=== PATIENT | female | born 1995 | race American Indian/Alaskan Native ===

== ENCOUNTER 2020-03-01 01:23 | Emergency (ER) | payer MEDICAID ==
[2020-03-01] MEDS ORDERED: ZIPRASIDONE MESYLATE 20 MG VIAL IM ONE ×2 (01:33→01:35)
--- NOTE | 2020-03-01 01:55 | Emergency Department Report ---
ED Psych HPI - General Chief Complaint: Psych Stated Complaint: MH EVALUATION Time Seen by Provider: 03/01/20 01:35 Source: patient, family Mode of arrival: Ambulatory - History of Present Illness Initial Comments: Patient is 25 years old female with history of schizophrenia. Patient brought to the emergency room by her for evaluation of altered mental status and agitation. stated that patient started talking nonsense and became more agitated. He stated that this is typical for her acute psychosis. In the emergency room patient is alert. Patient agitated. Patient is responding to internal stimuli. Patient received Geodon 20 mg IM for chemical restraints. Complaint: altered mental status - Related Data Home Medications Medication Instructions Recorded Confirmed Last Taken ARIPiprazole [Abilify] 10 mg PO DAILY 01/24/16 01/24/16 Unknown Allergies Allergy/AdvReac Type Severity Reaction Status Date / Time No Known Allergies Allergy Verified 03/01/20 01:33 ED Review of Systems ROS: Stated complaint: MH EVALUATION Other details as noted in HPI Comment: All other systems reviewed and negative Constitutional: denies: chills, fever Respiratory: denies: cough, shortness of breath, SOB with exertion Cardiovascular: denies: chest pain, palpitations Gastrointestinal: denies: abdominal pain, nausea Musculoskeletal: denies: back pain Neurological: denies: headache, weakness, numbness, paresthesias, confusion, abnormal gait Psychiatric: auditory hallucinations ED Past Medical Hx - Past Medical History Previous Medical History?: Yes Hx Psychiatric Treatment: Yes (shcizo) - Surgical History Past Surgical History?: No - Social History Smoking Status: Current Some Day Smoker Substance Use Type: None - Medications Home Medications: Home Medications Medication Instructions Recorded Confirmed Last Taken Type ARIPiprazole [Abilify] 10 mg PO DAILY 01/24/16 01/24/16 Unknown History ED Physical Exam - General Limitations: Other General appearance: alert, anxious, other (Agitated) - Head Head exam: Present: atraumatic, normocephalic, normal inspection - Eye Eye exam: Present: normal appearance - ENT ENT exam: Present: normal exam, normal orophraynx, mucous membranes moist - Neck Neck exam: Present: normal inspection, full ROM. Absent: tenderness, meningismus, lymphadenopathy, thyromegaly - Respiratory Respiratory exam: Present: normal lung sounds bilaterally - Cardiovascular Cardiovascular Exam: Present: regular rate, normal rhythm, normal heart sounds - GI/Abdominal GI/Abdominal exam: Present: soft, normal bowel sounds. Absent: distended, tenderness, guarding, rebound, rigid, organomegaly, mass, bruit, pulsatile mass, hernia - Extremities Exam Extremities exam: Present: normal inspection, full ROM, normal capillary refill. Absent: pedal edema, calf tenderness - Back Exam Back exam: Present: normal inspection, full ROM. Absent: CVA tenderness (R), CVA tenderness (L), muscle spasm, paraspinal tenderness, vertebral tenderness - Neurological Exam Neurological exam: Present: alert, oriented X3, CN II-XII intact, normal gait, reflexes normal. Absent: motor sensory deficit - Psychiatric Psychiatric exam: Present: normal mood - Skin Skin exam: Present: warm, intact, normal color ED Course Vital Signs 03/01/20 03/01/20 03/01/20 01:35 07:47 13:19 Temperature 98.5 F 97.9 F Pulse Rate 125 H 74 Respiratory 20 20 20 Rate Blood Pressure 119/77 124/78 [Right] O2 Sat by Pulse 96 100 100 Oximetry 03/01/20 19:45 Temperature 98.6 F Pulse Rate 108 H Respiratory 18 Rate Blood Pressure 131/82 [Right] O2 Sat by Pulse 99 Oximetry ED Medical Decision Making - Lab Data Result diagrams: 03/01/20 01:47 03/01/20 01:47 Critical care attestation.: If time is entered above; I have spent that time in minutes in the direct care of this critically ill patient, excluding procedure time. ED Disposition Clinical Impression: Acute psychosis Disposition: DC/TX-65 PSY HOSP/PSY UNIT Is pt being admited?: No Condition: Stable Referrals: PRIMARY CARE [Primary Care Provider] - 3-5 Days
[2020-03-01 02:15] LABS: Basophils # (Auto) 0.1 K/mm3 (0.0-0.1); Basophils % (Auto) 0.9 % (0.0-1.8); Hematocrit 42.8 % (30.3-42.9); Hemoglobin 14.6 gm/dl (10.1-14.3); Lymphocytes # (Auto) 1.7 K/mm3 (1.2-5.4); Lymphocytes % (Auto) 17.2 % (13.4-35.0); Mean Corpuscular HGB Conc 34 % (30-34); Mean Corpuscular Volume 89 fl (79-97); Monocytes % (Auto) 10.7 % (0.0-7.3); Platelet Count 293 K/mm3 (140-440); Red Blood Count 4.81 M/mm3 (3.65-5.03); Red Cell Distribution Width 14.5 % (13.2-15.2)
[2020-03-01 03:10] LABS: BUN/Creatinine Ratio 15; Blood Urea Nitrogen 16 mg/dL (7-17); Calcium 9.2 mg/dL (8.4-10.2); Hemolysis Index 26
[2020-03-01] MEDS ORDERED: LORazepam 2 MG/ML VIAL ONE (04:31)
[2020-03-01] MEDS ORDERED: HALOPERIDOL LACTATE 5 MG/1 ML INJ ONE (04:31)
[2020-03-01] MEDS ORDERED: HALOPERIDOL LACTATE 5 MG/1 ML INJ IM ONE (04:40)
[2020-03-01] MEDS ORDERED: LORazepam 2 MG/ML VIAL IM ONE (04:40)
[2020-03-01 13:58] LABS: Bacteria,Urine 1+ /HPF (Negative); Bilirubin,Urine NEG (Negative); Blood,Urine NEG (Negative); Color,Urine Yellow (Yellow); Hyaline Casts,Urine 1 /LPF; Mucus,Urine 2+ /HPF; Urobilinogen,Urine < 2.0 mg/dL (<2.0)
[2020-03-01 14:11] LABS: Amphetamine Screen,Urine Negative; Benzodiazepines Screen,Urine Negative; Cannabinoid Screen,Urine Negative; Cocaine Screen,Urine Negative; Methadone Screen,Urine Negative; Opiate Screen,Urine Negative
[2020-03-01 20:40] VITALS: BP 131/82
== END 2020-03-01 21:15 ==
LOC: ED 01:23
DX: F23 Brief psychotic disorder (principal); F20.9 Schizophrenia, unspecified; F17.200 Nicotine dependence, unspecified, uncomplicated
CPT/HCPCS: 36415; 80048; 80307; 81001; 84703; 85025; 96372; 99285; J1630; J2060; J3486; 80320; G0480

== ENCOUNTER 2021-01-14 06:19 | Emergency (ER) | payer MEDICARE ==
[2021-01-14] MEDS ORDERED: diphenhydrAMINE 50 MG/ML VIAL IM PRN (06:40)
[2021-01-14] MEDS ORDERED: HALOPERIDOL LACTATE 5 MG/1 ML INJ IM PRN (06:40)
[2021-01-14] MEDS ORDERED: LORazepam 2 MG/ML VIAL IM PRN (06:40)
--- NOTE | 2021-01-14 06:53 | Emergency Department Report ---
HPI - General Chief Complaint: Psych Time Seen by Provider: 01/14/21 06:39 - HPI HPI: Triage/room 13 The patient is a 26-year-old female present with a chief complaint of bizarre behavior. History is obtained by the patient's (Mr. Fine ) who states the patient has a history of schizophrenia and bipolar disorder but has not taken any psychiatric medications in 3 years. He states for the past 8 days the patient has had bizarre behavior talking in third person and mumbling. When he brought her to this ED the patient is running and jumping from chair to chair exhibiting mumbling speech. The states the patient has not made any suicidal or homicidal threats ED Past Medical Hx - Past Medical History Previous Medical History?: Yes Hx Psychiatric Treatment: Yes (Schizophrenia, bipolar disorder) - Surgical History Past Surgical History?: No - Family History Family history: no significant - Social History Smoking Status: Never Smoker Substance Use Type: Alcohol (Occasional), Marijuana - Medications Home Medications: Home Medications Medication Instructions Recorded Confirmed Last Taken Type ARIPiprazole [Abilify] 10 mg PO DAILY 01/24/16 01/24/16 Unknown History ED Review of Systems ROS: Stated complaint: MH MENTAL BREAKDOWN Other details as noted in HPI Comment: Unobtainable due to pts medical conditions Physical Exam - Physical Exam Physical Exam: GENERAL: The patient is well-developed well-nourished female running and jumping from chair to chair in triage exhibiting mumbling speech. [] HEENT: Normocephalic. Atraumatic. Extraocular motions are intact. Patient has moist mucous membranes. NECK: Supple. Trachea midline CHEST/LUNGS: Clear to auscultation. There is no respiratory distress noted. HEART/CARDIOVASCULAR: Regular. There is no tachycardia. There is no gallop rub or murmur. ABDOMEN: Abdomen is soft, nontender. Patient has normal bowel sounds. There is no abdominal distention. SKIN: There is no rash. There is no edema. There is no diaphoresis. NEURO: The patient is awake, but not cooperative. Patient exhibiting mumbling speech. Moves all extremities well. Normal ambulation. MUSCULOSKELETAL: There is no evidence of acute injury. ED Medical Decision Making - Lab Data Result diagrams: 01/14/21 09:08 01/14/21 09:08 - Differential Diagnosis Schizophrenia Critical care attestation.: If time is entered above; I have spent that time in minutes in the direct care of this critically ill patient, excluding procedure time. ED Disposition Clinical Impression: Schizophrenia, UTI (urinary tract infection) Disposition: DC/TX-65 PSY HOSP/PSY UNIT Is pt being admited?: No Does the pt Need Aspirin: No Condition: Stable Time of Disposition: 11:10 (Awaiting acceptance)
[2021-01-14 08:23] LABS: Bacteria,Urine 2+ /HPF (Negative); Bilirubin,Urine NEG (Negative); Blood,Urine NEG (Negative); Color,Urine Amber (Yellow); Mucus,Urine 3+ /HPF; Urobilinogen,Urine < 2.0 mg/dL (<2.0)
[2021-01-14 08:29] LABS: Amphetamine Screen,Urine Negative; Benzodiazepines Screen,Urine Negative; Cocaine Screen,Urine Negative; Methadone Screen,Urine Negative; Opiate Screen,Urine Negative
[2021-01-14 08:51] LABS: Cannabinoid Screen,Urine Positive
[2021-01-14 09:39] LABS: Basophils % (Auto) 0.4 % (0.0-1.8); Eosinophils % (Auto) 0.1 % (0.0-4.3); Hematocrit 42.4 % (30.3-42.9); Hemoglobin 14.6 gm/dl (10.1-14.3); Lymphocytes # (Auto) 1.5 K/mm3 (1.2-5.4); Lymphocytes % (Auto) 17.9 % (13.4-35.0); Mean Corpuscular HGB Conc 35 % (30-34); Mean Corpuscular Volume 93 fl (79-97); Monocytes # (Auto) 0.9 K/mm3 (0.0-0.8); Monocytes % (Auto) 10.6 % (0.0-7.3); Platelet Count 287 K/mm3 (140-440); Red Blood Count 4.57 M/mm3 (3.65-5.03); Red Cell Distribution Width 13.5 % (13.2-15.2)
[2021-01-14 09:59] LABS: BUN/Creatinine Ratio 8; Blood Urea Nitrogen 7 mg/dL (7-17); Calcium 9.1 mg/dL (8.4-10.2); Hemolysis Index 18
[2021-01-14] MEDS ORDERED: POTASSIUM CHLORIDE ER 20 MEQ TAB PO ONE (11:06)
--- NOTE | 2021-01-14 11:48 | Consultation ---
History of Present Illness - Reason for Consult Consult date: 01/14/21 Reason for consult: bizarre behavior - History of Present Psychiatric Illness Per ED Note: The patient is a 26-year-old female present with a chief complaint of bizarre behavior. History is obtained by the patient's (Mr. Fine [phone]) who states the patient has a history of schizophrenia and bipolar disorder but has not taken any psychiatric medications in 3 years. He states for the past 8 days the patient has had bizarre behavior talking in third person and mumbling. When he brought her to this ED the patient is running and jumping from chair to chair exhibiting mumbling speech. The states the patient has not made any suicidal or homicidal threats. The patient was seen today, her behavior is bizarre and she appears to be hallucinating. she is standing in the hallway staring at something intensely. When asked what was she looking at, the patient responded "at color. Trying to focus on the color dots." When informing the patient the lópez were white, she says "well that's a color, right?" The patient says she's been having "episodes for the past 5 months, but it has gotten bad now." She says "these episodes of anxiety and thinking clearly." She says she has been off her meds for about 4 years. In the middle of the conversation, the patient starts swaying back and forth and closes her eyes. She says "I'm starting to remember family secretes that they are trying to keep. I see them." She denies SI/HI. PAST PSYCHIATRIC HISTORY Diagnoses: PTSD, Bipolar, Schizophrenia Suicide attempts or Self-harm behavior: Denies Prior psychiatric hospitalizations: Denies Substance Abuse history: Denies Previous psychiatric medications tried: Denies Outpatient treatment: Denies PAST MEDICAL HISTORY: None report Family Psychiatric History: None reported or documented SOCIAL HISTORY Marital Status: Living Arrangements: with family Employment Status: Unemployed Access to guns/weapons: Denies Education: High school History of Abuse: None Legal History: None reported REVIEW OF SYSTEMS Constitutional: Negative for weight loss ENT: Negative for stridor Respiratory: Negative for cough or hemoptysis All other systems reviewed and are negative MENTAL STATUS EXAMINATION General Appearance and Behavior: Age appropriate, good hygiene, not wearing appropriate clothes, Poor eye contact, bizarre Cooperation: Participating Psychomotor Behavior: Psychomotor normal Mood: Anxious Affect and affective range: Restricted Thought Process: Illogical Speech: Normal tone and pace Intellectual Functioning: Average Thought Content Suicidal Ideation: Denies Homicidal Ideation: Denies Hallucinations: Yes, A/V Delusions: None elicited Impulse Control: Impaired Insight and Judgment: Poor insight and judgment Memory: Normal Attention: Divided attention impaired Orientation: A/o x 3 Assessment and Plan (1) Bipolar Disorder Current Visit: Yes Status: Acute Treatment Plan 1013 Olanzapine 2.5mg po daily Vistaril 25mg po BID Trazodone 50mt po qhs Sitter: defer to primary Medical: Per primary Disposition: Recommend acute psychiatric inpatient treatment. Will restart the patient medication Will follow. thank you Case staffed with Dr. Mtz Medications and Allergies Allergies Allergy/AdvReac Type Severity Reaction Status Date / Time No Known Allergies Allergy Verified 03/01/20 01:33 Home Medications Medication Instructions Recorded Confirmed Last Taken Type ARIPiprazole [Abilify] 10 mg PO DAILY 01/24/16 01/24/16 Unknown History Active Meds: Active Medications Diphenhydramine HCl (Diphenhydramine 50 Mg/Ml Vial) 50 mg IM Q6H PRN PRN Reason: Agitation Last Admin: 01/14/21 06:50 Dose: 50 mg Documented by: Haloperidol Lactate (Haloperidol Lactate 5 Mg/1 Ml Inj) 10 mg IM Q8H PRN PRN Reason: Agitation Last Admin: 01/14/21 06:50 Dose: 10 mg Documented by: Lorazepam (Lorazepam 2 Mg/Ml Vial) 2 mg IM Q8H PRN PRN Reason: Agitation Last Admin: 01/14/21 06:50 Dose: 2 mg Documented by: Trimethoprim/Sulfamethoxazole (Sulfamethoxazole/Trimethoprim 800/160mg Ds Tab) 1 each PO Q12HR INES; Protocol Stop: 01/16/21 22:00 Mental Status Exam - Vital signs Last Vital Signs Temp 98.4 F 01/14/21 08:36 Pulse 112 H 01/14/21 08:36 Resp 18 01/14/21 08:36 BP 156/91 01/14/21 08:36 Pulse Ox 100 01/14/21 08:36 Results Result Diagrams: 01/14/21 09:08 01/14/21 09:08 Abnormal lab results 01/14/21 01/14/21 01/14/21 Range/Units 09:08 09:08 09:08 Hgb 14.6 H (10.1-14.3) gm/dl MCHC 35 H (30-34) % [place] % (Auto) 10.6 H (0.0-7.3) % [place] # (Auto) 0.9 H (0.0-0.8) K/mm3 Seg Neutrophils % 71.0 H (40.0-70.0) % Potassium 3.3 L (3.6-5.0) mmol/L Urine WBC (Auto) (0.0-6.0) /HPF U Epithel Cells (Auto) (0-13.0) /HPF Salicylates < 0.3 L (2.8-20.0) mg/dL Acetaminophen (10.0-30.0) ug/mL 01/14/21 01/14/21 Range/Units 09:08 Unknown Hgb (10.1-14.3) gm/dl MCHC (30-34) % [place] % (Auto) (0.0-7.3) % [place] # (Auto) (0.0-0.8) K/mm3 Seg Neutrophils % (40.0-70.0) % Potassium (3.6-5.0) mmol/L Urine WBC (Auto) 16.0 H (0.0-6.0) /HPF U Epithel Cells (Auto) 14.0 H (0-13.0) /HPF Salicylates (2.8-20.0) mg/dL Acetaminophen 5.0 L (10.0-30.0) ug/mL All other labs normal.
[2021-01-14] MEDS: hydrOXYzine PAMOATE 25 MG CAP PO SCH (15:50)
[2021-01-14] MEDS: SULFAMETHOXAZOLE/TRIMETHOPRIM 800/160MG DS TAB PO SCH (15:50)
[2021-01-14] MEDS ORDERED: traZODone 50 MG TAB PO SCH (22:00)
[2021-01-15] MEDS: SULFAMETHOXAZOLE/TRIMETHOPRIM 800/160MG DS TAB PO SCH ×2 (03:33→11:10)
[2021-01-15] MEDS: hydrOXYzine PAMOATE 25 MG CAP PO SCH ×2 (03:33→11:10)
--- NOTE | 2021-01-15 10:37 | Progress Note ---
Subjective - Reason for Consult Consult date: 01/15/21 Reason for consult: psychosis - Chief Complaint Chief complaint: The patient was seen today, she is still paranoid. She appears irritable. She is asking to go home. When asking the patient if the medications given made feel any better, she gets up and starts pacing around. She does not answer any more questioning. REVIEW OF SYSTEMS Constitutional: Negative for weight loss ENT: Negative for stridor Respiratory: Negative for cough or hemoptysis All other systems reviewed and are negative MENTAL STATUS EXAMINATION General Appearance and Behavior: Age appropriate, good hygiene, not wearing appropriate clothes, Poor eye contact, pacing Cooperation: uncooperative Psychomotor Behavior: Psychomotor normal, agitated Mood: appears irritable Affect and affective range: Restricted Thought Process: Illogical Speech: Normal tone and pace Intellectual Functioning: Average Thought Content Suicidal Ideation: Denies Homicidal Ideation: Denies Hallucinations: Yes, A/V Delusions: None elicited Impulse Control: Impaired Insight and Judgment: Poor insight and judgment Memory: Normal Attention: Divided attention impaired Orientation: A/o x 3 Assessment and Plan (1) Bipolar Disorder Current Visit: Yes Status: Acute Treatment Plan 1013 Increased Olanzapine 5mg po daily Start Depakote DR 125mg po BID Continue Vistaril 25mg po BID Continue Trazodone 50mg po qhs Sitter: defer to primary Medical: Per primary Disposition: Recommend acute psychiatric inpatient treatment. Will restart the patient medication Will follow. thank you Case staffed with Dr. Mtz Mental Status Exam - Vital signs Last Vital Signs Temp 99.0 F 01/15/21 09:06 Pulse 111 H 01/15/21 09:07 Resp 18 01/15/21 08:00 BP 145/92 01/15/21 09:06 Pulse Ox 99 01/15/21 09:07
[2021-01-15] MEDS ORDERED: DIVALPROEX DR 125 MG TAB PO SCH (11:00)
[2021-01-15 12:18] VITALS: BP 139/102
== END 2021-01-15 17:55 ==
LOC: ED 06:19
DX: N39.0 Urinary tract infection, site not specified (principal); Z20.822 Contact with and (suspected) exposure to COVID-19; F20.9 Schizophrenia, unspecified; F31.9 Bipolar disorder, unspecified; F12.10 Cannabis abuse, uncomplicated; Z79.899 Other long term (current) drug therapy
CPT/HCPCS: 36415; 80048; 80307; 81001; 84703; 85025; 87086; 96372; 99285; J1200; J1630; J2060; Q0177; U0003; 80320; G0480